=== PATIENT | male | born 2000 | race African-American/Black ===

== ENCOUNTER → 2024-07-06 14:18 | Outpatient (CLI) | payer OTHER, SELFPAY ==
[2024-07-06 16:48] LABS: Urine N gonorrhoeae NOT DETECTED
[2024-07-06 16:51] LABS: Urine Chlamydia NOT DETECTED
== END ==
PROVIDERS: Referring Provider Physician Assistant Surgical; Visit Provider Physician Assistant Surgical
DX: Z20.2 Contact with and (suspected) exposure to infections with a predominantly sexual mode of transmission (principal)
CPT/HCPCS: 87210; 87491; 87591